=== PATIENT | female | born 1990 ===

== ENCOUNTER 2019-03-14 02:37 | Inpatient (IN) | payer SELFPAY ==
[2019-03-14] MEDS ORDERED: RINGERS SOLUTION,LACTATED 1,000 ML IV PRN (02:39)
[2019-03-14] MEDS ORDERED: CEFAZOLIN 2 GM/D5W RTU 2 GM/50 ML RTUPB IV ONE ×2 (02:39→03:54)
[2019-03-14] MEDS ORDERED: RINGERS SOLUTION,LACTATED 1,000 ML IV ONE (02:39)
[2019-03-14 02:57] LABS: ABSOLUTE EOSINOPHILS # (AUTO) 0.1 10^3/uL (0.0-0.6); ABSOLUTE LYMPHOCYTES (AUTO) 2.9 10^3/uL (0.5-4.7); ABSOLUTE MONOCYTES (AUTO) 0.7 10^3/uL (0.1-1.4); ABSOLUTE NEUT (AUTO) 4.8 10^3/uL (1.7-8.2); BASOPHILS % (AUTO) 0.5 % (0-2); EOSINOPHILS % (AUTO) 0.7 % (0-6); HEMATOCRIT 32.2 % (36.0-47.0); HEMOGLOBIN 10.8 g/dL (12.0-15.5); LYMPHOCYTES % (AUTO) 34.4 % (13-45); MEAN CORPUSCULAR HEMOGLOBIN 30.4 pg (27.0-33.4); MEAN CORPUSCULAR HGB CONC 33.6 g/dL (32.0-36.0); MEAN CORPUSCULAR VOLUME 90 fl (80-97); MONOCYTES % (AUTO) 7.9 % (3-13); PLATELET COUNT 183 10^3/uL (150-450); RED BLOOD COUNT 3.57 10^6/uL (3.72-5.28); SEGMENTED NEUTROPHILS % (AUTO) 56.5 % (42-78); TOTAL CELLS COUNTED % (AUTO) 100 %; WHITE BLOOD COUNT 8.5 10^3/uL (4.0-10.5)
[2019-03-14] MEDS ORDERED: PROPOFOL INJ 200 MG/20 ML VIAL IV ONE (03:02)
[2019-03-14] MEDS ORDERED: MIDAZOLAM 2 MG/2 ML INJ ONE (03:02)
[2019-03-14] MEDS ORDERED: MORPHINE SULFATE 10 MG/ML INJ ONE ×2 (03:03→04:28)
[2019-03-14] MEDS ORDERED: FENTANYL CITRATE INJ/PF 100 MCG/2 ML AMPUL ONE ×2 (03:03→04:06)
[2019-03-14] MEDS ORDERED: OXYTOCIN 10 UNIT/ML VIAL ONE ×2 (03:03→03:21)
[2019-03-14] MEDS ORDERED: METHYLERGONOVINE MALEATE INJ/PF 0.2 MG/1 ML AMPULE ONE (03:06)
[2019-03-14] MEDS ORDERED: CARBOPROST TROMETHAMINE INJ 250 MCG/1 ML AMPULE ONE (03:06)
[2019-03-14] MEDS ORDERED: MISOPROSTOL 0.2 MG TABLET ONE (03:09)
[2019-03-14 03:28] LABS: URINE AMPHETAMINES SCREEN NEGATIVE; URINE BARBITURATES SCREEN NEGATIVE; URINE BENZODIAZEPINES SCREEN NEGATIVE; URINE COCAINE SCREEN NEGATIVE; URINE MARIJUANA (THC) SCREEN NEGATIVE; URINE METHADONE SCREEN NEGATIVE; URINE PHENCYCLIDINE SCREEN NEGATIVE
[2019-03-14] MEDS ORDERED: HYDROMORPHONE HCL INJ/PF 2 MG/ML AMPULE IV PRN (03:50)
[2019-03-14] MEDS ORDERED: PROMETHAZINE HCL INJ 25 MG/1 ML VIAL IV PRN (03:50)
[2019-03-14] MEDS ORDERED: OXYCODONE-ACETAMINOPHEN 5-325 MG TABLET PO PRN (03:50)
[2019-03-14] MEDS ORDERED: OXYTOCIN/NORMAL SALINE 20 UNIT/1,000 ML RTUINJ IV PRN (03:50)
[2019-03-14] MEDS ORDERED: ACETAMINOPHEN 325 MG TABLET PO PRN (03:50)
[2019-03-14] MEDS ORDERED: DIPH/PERTUSS(ACELL)/TETANUS VAC/PF 0.5 ML SYR (>=10YO) IM PRN (03:50)
[2019-03-14] MEDS ORDERED: SIMETHICONE 80 MG TAB.CHEW PO PRN (03:50)
[2019-03-14] MEDS ORDERED: MEASLES,MUMPS&RUBELLA VACC/PF 0.5 ML VIAL SUBCUT PRN (03:50)
[2019-03-14] MEDS ORDERED: ACETAMINOPHEN 1,000 MG/100 ML RTUPB IV PRN (03:50)
[2019-03-14] MEDS ORDERED: OXYTOCIN/NORMAL SALINE 20 UNIT/1,000 ML RTUINJ ONE (03:53)
[2019-03-14] MEDS ORDERED: CITRIC ACID/SODIUM CITRATE ORAL SOLN 15 ML UDCUP ONE (03:54)
[2019-03-14] MEDS ORDERED: MISOPROSTOL 0.2 MG TABLET PR ONE (03:56)
[2019-03-14 03:57] LABS: RUBELLA INTERPRETATION POSITIVE
--- NOTE | 2019-03-14 04:04 | Admission Physical ---
Datetime Report Generated by CPN: 03/14/2019 04:04 CURRENT ADMISSION Chief Complaint: Uterine Contractions; Vaginal Bleeding Chief Complaint Other: posterior placenta previa Indication for Induction: Not Applicable Admit Impression : Term, Intrauterine ; Active Labor; Intact Membranes; Primary Section; Vaginal Bleeding Admit Plan: Admit to Unit; Initiate Section Protocol ALLERGIES Medication Allergies: No Latex: No Latex Allergies PHYSICAL EXAM General: Normal HEENT: Normal Neurologic: Normal Thyroid: Deferred Heart: Normal Lungs: Normal Breast: Deferred Back: Normal Abdomen: Normal Genitourinary Exam: Normal Extremities: Normal DTRs: Normal Pelvic Type: Adequate Vital Signs: Reviewed VAGINAL EXAM Dilatation: 2 FETUS A Monitoring: External US FHR- Baseline: 145 Variability: Moderate 6-25bpm Accelerations: 15X15 Decelerations: None FHR Category: Category I Presentation: Vertex Admit Comment: 29yo (h/o ) with known posterior placenta previa at 37+0ega today by patient report presents via EMS for large amount of vaginal bleeding. SHe reports that she is scheduled for Primary C/S in [place] on sunday and her preop is supposed to be there today. SSE on arrival with large amount of clot in vault and active bright red bleeding with cervix visually 2cm. Total blood vaginally and on patients belongings was approx 300-400ml. Reviewed with patient and that need for Primary section urgently due to actively bleeding. R/B/A reviewed and patient desires to proceed with planned procedure. No records available. Will request. Denies allergies or medical issues. PLANS FOR LABOR AND DELIVERY Labor and Delivery: None Pain Management: None Feeding Preference: Breast Benefit of Breast Feed Discussed: Yes INFORMED CONSENT Informed Consent Obtained: Section Delivery; Risks, Benefits and Alternatives Discussed Signature: with User ID: [email or web address]
--- NOTE | 2019-03-14 04:09 | Brief Operative Note ---
BRIEF OPERATIVE REPORT DATE OF SURGERY: 03/14/19 TIME OF SURGERY: 03:30 PREOPERATIVE DIAGNOSIS: 37+0ega per patient report, , Active Hemorrhage from posterior placenta previa POSTOPERATIVE DIAGNOSIS: DEEDEE- abruption SURGEON: JORGE VASQUES FINDINGS: VMI delivered from cephalic presentation at 0303, Apgars 9/9, weight 2795g (6#3oz). Normal tubes/ovaries. Uterus with infante bruised appearing fundus and posterior lower uterine segment consistent with abruption, bloody amniotic fluid noted upon entry into uterus. IVF 1300ml, UOP 150ml (clear) COMPLICATIONS: Abruption, Placenta previa with hemorrhage ESTIMATED BLOOD LOSS: 460ml (QBL) plus what was lost in room (approx 760-860ml total) TISSUE REMOVED OR ALTERED: placenta and cord sent to pathology TECHNICAL PROCEDURE: Primary section
[2019-03-14] MEDS ORDERED: KETOROLAC TROMETHAMINE INJ/PF 30 MG/1 ML SDV ONE (04:29)
--- NOTE | 2019-03-14 04:29 | Operative Report ---
Operative Report DATE OF SURGERY: 03/14/19 PREOPERATIVE DIAGNOSIS: 37+0ega per patient report, , Active Hemorrhage from posterior placenta previa POSTOPERATIVE DIAGNOSIS: DEEDEE- abruption OPERATION: Primary section SURGEON: JORGE VASQUES ANESTHESIA: GA TISSUE REMOVED OR ALTERED: placenta and cord sent to pathology COMPLICATIONS: Abruption, Posterior placenta previa with hemorrhage ESTIMATED BLOOD LOSS: 460ml (QBL) plus what was lost in room (approx 760-860ml total) INTRAOPERATIVE FINDINGS: VMI delivered from cephalic presentation at 0303, Apgars 9/9, weight 2795g (6#3oz). Normal tubes/ovaries. Uterus with infante bruised appearing fundus and posterior lower uterine segment consistent with abruption, bloody amniotic fluid noted upon entry into uterus. IVF 1300ml, UOP 150ml (clear) PROCEDURE: Anesthesia provider: [Vargas VILLALTA, William Jimenes CRNA] Urine output: [150ml] IV fluids: [1300ml] Indications: [29yo at 37+0ega presents via EMS with active hemorrhage, contractions and known placenta previa. She was scheduled to have Primary C/S at [facility] due to known placenta previa on this coming Sunday. She was actively bleeding on exam (see H&P) and noted to have approximately 300-400ml EBL at that time with continued active bleeding from vagina. On SSE active bleeding from already dilated 2cm cervix noted. She was consented for Primary section and the risks, benefits, alternatives were reviewed and she desires to proceed with planned procedure.] Procedure: The patient was taken to the operating room where spinal anesthesia was unable to be obtained. She was then prepped and draped in the normal sterile fashion and placed in the dorsal supine position with a leftward tilt and then general anesthesia was obtained without difficulty at approximately 0257. A Pfannenstiel skin incision was then made and carried through to the underlying layers of the fascia with the scalpel. The fascia was incised in the midline and the incision extended laterally with the Pickard scissors. The superior aspect of the fascial incision was then grasped with Nii clamps elevated and the underlying rectus muscles dissected off [bluntly]. Attention was then turned to the inferior aspect of the fascial incision which in a similar fashion was grasped, tented up with Nii clamps, and the rectus muscles dissected off [bluntly]. The rectus muscles were then in the midline and the peritoneum at the amount identified and entered [bluntly]. The peritoneal incision was then extended superiorly and inferiorly with good visualization of the bladder. The bladder blade was inserted and the lower uterine segment incised in a transverse fashion with the scalpel. The uterine incision was then extended bluntly. The bladder blade was removed and the 's head was delivered from cephalic presentation atraumatically. The nose and mouth were suctioned and the cord doubly clamped and cut. And the infant was handed off to waiting pediatricians. The placenta was then delivered spontaneously and the uterus exteriorized and cleared of all clots and debris. The uterine incision was then repaired with 1- 0 Vicryl in a running locked fashion. A second layer of the same suture was used to obtain hemostasis via imbrication of the initial layer. The bladder flap was then repaired with 3-0 chromic in a running fashion. The uterus was returned to the patient's abdomen. The gutters were cleared of all clots and debris. All operative sites were noted to be hemostatic and surgicel was placed overlying the rectus muscles to assist with hemostasis. The fascia was reapproximated with 0 Vicryl in a running fashion from each lateral edge to the midline. The skin was closed with 3-0 Monocryl in a running subcuticular fashion with overlying Dermabond for additional dressing as well as wound closure. The patient tolerated the procedure well. Sponge lap needle and instrument counts are correct times 2. 2 g of Ancef were given prior to skin incision. The patient was taken to the recovery area awake and in stable condition.
[2019-03-14] MEDS: KETOROLAC TROMETHAMINE INJ/PF 30 MG/1 ML SDV IV SCH ×3 (05:00→21:38)
--- NOTE | 2019-03-14 07:04 | Delivery Summary ---
Del Sum A-C Datetime Report Generated by CPN: 03/14/2019 07:04 DELIVERY PERSONNEL DELIVERY PERSONNEL: [id number] Delivery Doctor:: Floridalma Sapp MD Anesthesiologist:: Missael Kaye MD UKE OPERATOR:: Cornel Pierre CRNA Labor and Delivery Nurse:: Arsalan Mcclure RN Labor and Delivery Nurse:: Karen Davalos RN Electronic Test Technician:: Arsalan Mcclure RN Neonatal Nurse Practitioner:: JERRY Swain Nursery Nurse:: Camila Elizabeth RN Nursery Nurse:: Radha Abrams RN Volcanologist/COLLECTIONS OFFICER: [facility] Volcanologist/COLLECTIONS OFFICER: [facility] MATERNAL INFORMATION Delivery Anesthesia: General Medications After Delivery: Pitocin Drip 20 Units/1000ml NSS; Cytotec 1000mcg Per Rectum/Vagina Maternal Complications: Placenta Previa; Abruptio Placenta LABOR SUMMARY EDC: 04/04/2019 00:00 No. Babies in Womb: 1 Attempted: No Labor Anesthesia: None LABOR INFORMATION Reason for Induction: Not Applicable Oxytocin: N/A Group B Beta Strep: unknown Antibiotics # of Doses: 0 Antibiotics Time of Last Dose: N/A Name of Antibiotic Given: N/A Steroids Given: None Reason Steroids Not Administered: Not Applicable MEMBRANES Membranes Rupture Method: Artificial Rupture of Membranes: 03/14/2019 03:03 Length of Rupture (hr): 0.00 Amniotic Fluid Color: Bloody Amniotic Fluid Amount: Moderate Amniotic Fluid Odor: Normal STAGES OF LABOR Stage 3 hr: 0 Stage 3 min: 1 VAGINAL DELIVERY Episiotomy: None Laceration #1: None Laceration Extension #1: N/A Laceration Repair: Not Applicable Sponge Count Correct: N/A Sharps Count Correct: N/A CSECTION DELIVERY Primary Indication: Placenta Previa Secondary Indication: Abruptio Placenta CSection Urgency: Emergency CSection Incidence: Primary Labor: No Labor Elective: Nonelective CSection Incision: Lower Uterine Transverse BABY A INFORMATION Infant Delivery Date/Time: 03/14/2019 03:03 Method of Delivery: Born in Route : No : N/A Forceps: N/A Vacuum Extraction: N/A Shoulder Dystocia : No PRESENTATION/POSITION BABY A Presentation: Cephalic Cephalic Presentation: Vertex Breech Presentation: N/A PLACENTA INFORMATION BABY A Placenta Delivery Time : 03/14/2019 03:04 Placenta Method of Delivery: Manual Removal Placenta Status: Delivered SCORES BABY A Heart Rate 1 min: >100 bpm Resp Effort 1 min: Good Cry Reflex Irritability 1 min: Cough or Sneeze or Pulls Away Muscle Tone 1 min: Active Motion Color 1 min: Blue/Pale SCORE 1 MIN: 8 Heart Rate 5 min: >100 bpm Resp Effort 5 min: Good Cry Reflex Irritability 5 min: Cough or Sneeze or Pulls Away Muscle Tone 5 min: Active Motion Color 5 min: Body Basye, Extremities Blue SCORE 5 MIN: 9 INFANT INFORMATION BABY A Gestational Age at Delivery: 37.0 Gestational Status: Early Term- 37- 38.6 Weeks Infant Outcome : Liveborn Condition : Stable Sex: Male IDENTIFICATION BABY A Infant Verification Date/Time: 03/14/2019 03:29 ID Band Number: [id number] Mother's Name Verified: Yes RN Verifying Infant: CGentilin RN, NDoyle RN WEIGHT/LENGTH BABY A Birthweight (gm): 2795 Weight (lb): 6 Infant Weight (oz): 3 Length (in): 18.50 Length (cm): 46.99 CORD INFORMATION BABY A No. Cord Vessels: 3 Nuchal Cord : N/A Cord Blood Taken: Yes-For Eval (Mom's Blood Type - or O+) Infant Suction: Mouth; Nose ASSESSMENT BABY A Infant Complications: None Physical Findings at Delivery: Other Physical Findings- Other: see nursery notes Infant Respirations: Appears Normal Skin to Skin: No Cadastral Engineer/ALS Called : Yes Care By: Camila Elizabeth RN Transferred To: Nursery BABY B INFORMATION : N/A
[2019-03-14] MEDS ORDERED: OXYCODONE-ACETAMINOPHEN 5-325 MG TABLET ONE (08:58)
[2019-03-14] MEDS: OXYCODONE-ACETAMINOPHEN 5-325 MG TABLET PO PRN (09:01)
[2019-03-14] MEDS ORDERED: PRENATAL VITAMIN W DHA CAPSULE PO ONE (09:28)
[2019-03-14] MEDS ORDERED: DOCUSATE SODIUM 100 MG CAPSULE ONE (09:28)
[2019-03-14] MEDS: DOCUSATE SODIUM 100 MG CAPSULE PO SCH ×2 (09:31→17:28)
[2019-03-14] MEDS: PRENATAL VITAMIN W DHA CAPSULE PO SCH (09:31)
[2019-03-14] MEDS ORDERED: PHENYLEPHRINE HCL INJ/PF 10 MG/1 ML SDV ONE (10:00)
[2019-03-14] MEDS ORDERED: DEXAMETHASONE SOD PHOSPHATE INJ 4 MG/1 ML VIAL ONE (10:00)
[2019-03-14] MEDS ORDERED: SUCCINYLCHOLINE CHLORIDE INJ 200 MG/10 ML VIAL ONE (10:00)
[2019-03-14] MEDS ORDERED: ONDANSETRON HCL INJ/PF 4 MG/2 ML SDV ONE (10:00)
[2019-03-15] MEDS ORDERED: IBUPROFEN 800 MG TABLET PO SCH (02:00)
[2019-03-15] MEDS: OXYCODONE-ACETAMINOPHEN 5-325 MG TABLET PO PRN ×2 (02:29→17:22)
[2019-03-15] MEDS: IBUPROFEN 800 MG TABLET PO SCH ×4 (05:50→23:21)
[2019-03-15 07:45] LABS: MEAN CORPUSCULAR HEMOGLOBIN 30.9 pg (27.0-33.4); MEAN CORPUSCULAR HGB CONC 34.3 g/dL (32.0-36.0); MEAN CORPUSCULAR VOLUME 90 fl (80-97); PLATELET COUNT 130 10^3/uL (150-450); RED BLOOD COUNT 2.56 10^6/uL (3.72-5.28); RED CELL DISTRIBUTION WIDTH 12.8 % (11.5-14.0); WHITE BLOOD COUNT 10.8 10^3/uL (4.0-10.5)
[2019-03-15 07:51] LABS: HEMOGLOBIN 7.9 g/dL (12.0-15.5)
[2019-03-15 08:37] LABS: HEPATITIS C VIRUS AB <0.1 s/co ratio (0.0-0.9)
[2019-03-15] MEDS: PRENATAL VITAMIN W DHA CAPSULE PO SCH (10:52)
[2019-03-15] MEDS: DOCUSATE SODIUM 100 MG CAPSULE PO SCH ×2 (10:52→17:21)
--- NOTE | 2019-03-15 13:49 | PDOC PROGRESS REPORT ---
Subjective-OB Progress Note for:: 03/15/19 Subjective: Pt doing well, bonding with baby. She denies heavy bleeding, reports regular diet without flatus at this point. No difficulty voiding. Physical Exam (OB) Vital Signs: Temp Pulse Resp BP Pulse Ox 98.1 F 76 18 112/66 97 03/15/19 11:20 03/15/19 11:20 03/15/19 11:20 03/15/19 11:20 03/15/19 11:20 Intake & Output 03/14/19 03/15/19 03/16/19 06:59 06:59 06:59 Intake Total 1300 480 Output Total 1250 Balance 50 480 Weight 72 kg - PIH/Pre-Eclampsia Clonus: Negative Headache: Absent Epigastric Pain: No Visual Changes: No - Dressing Removed: No Incision: Well Approximated Closure Type: Surgical Glue - Lochia Lochia Amount: Scant < 10 ml Lochia Color: Rubra/Red - Abdomen Description: Tender, Soft Hernia Present: No Fundal Description: Firm, Midline Fundal Height: u/u - u/2 Objective-Diagnostic Laboratory: 03/15/19 07:12 03/15/19 07:12 WBC 10.8 H RBC 2.56 L Hgb 7.9 L D Hct 23.0 L MCV 90 MCH 30.9 MCHC 34.3 RDW 12.8 Plt Count 130 L Assessment and Plan(PN) - Assessment and Plan (1) Incomplete placenta previa with intrapartum hemorrhage Is this a current diagnosis for this admission?: Yes (2) Placenta abruption, delivered, current hospitalization Is this a current diagnosis for this admission?: Yes (3) S/P primary low transverse Is this a current diagnosis for this admission?: Yes - Time Spent with Patient Time with patient: Less than 15 minutes Medications reviewed and adjusted accordingly: Yes - Disposition Anticipated Discharge: Home Within: within 24 hours
[2019-03-15 17:50] LABS: HEPATITS B SURFACE ANTIGEN Negative (Negative)
[2019-03-16] MEDS: IBUPROFEN 800 MG TABLET PO SCH ×2 (05:19→12:51)
[2019-03-16] MEDS: DOCUSATE SODIUM 100 MG CAPSULE PO SCH (10:10)
[2019-03-16] MEDS: PRENATAL VITAMIN W DHA CAPSULE PO SCH (10:10)
[2019-03-16 11:57] VITALS: BP 121/68
--- NOTE | 2019-03-31 08:45 | PDOC DISCHARGE SUMMARY ---
Final Diagnosis Discharge Date: 03/16/19 - Final Diagnosis (1) Incomplete placenta previa with intrapartum hemorrhage Is this a current diagnosis for this admission?: Yes (2) Placenta abruption, delivered, current hospitalization Is this a current diagnosis for this admission?: Yes (3) S/P primary low transverse Is this a current diagnosis for this admission?: Yes Discharge Data - Discharge Medication Home Medications: 95/Iron Fum/Folic/Dha [ + Dha Combo Pack] 1 cap PO DAILY 03/14/19 Reason(s) for Admission: Onset of Labor, Vaginal Bleading, Obstetric Complications Procedures: NST, Management of Obstetric Complications Intrapartum Procedure(s): : Low Cervical, Transverse - Diagnosis Test Laboratory: Temp Pulse Resp BP Pulse Ox 98.1 F 76 18 112/66 97 03/15/19 11:20 03/15/19 11:20 03/15/19 11:20 03/15/19 11:20 03/15/19 11:20 03/14/19 03/14/19 03/15/19 02:44 02:45 07:12 RBC 3.57 L 2.56 L Hgb 10.8 L 7.9 L D Hct 32.2 L 23.0 L Urine Opiates Screen NEGATIVE - Discharge information/Instructions Discharge Activity: Balance Activity w/Rest, No Lifting Over 10 Pounds, No Li fting/Push/Pulling, Pelvic Rest Discharge Diet: Regular Disposition: HOME, SELF-CARE Follow up with: [facility] in: 1, Weeks
== END 2019-03-16 15:19 | disposition home or self-care (01) | DRG 786 ==
LOC: LR 02:37 → 2S 10:38
PROVIDERS: ADMIT Student in an Organized Health Care Education/Training Program; ATTEND Student in an Organized Health Care Education/Training Program
PROC: 10D00Z1 Extraction of Products of Conception, Low, Open Approach (ICD-10-PCS; principal; 2019-03-14)
DX: O45.93 Premature separation of placenta, unspecified, third trimester (principal); O44.33 Partial placenta previa with hemorrhage, third trimester; Z37.0 Single live birth; Z3A.37 37 weeks gestation of pregnancy
CPT/HCPCS: 1961; 36415; 80307; 85025; 85027; 86592; 86701; 86762; 86803; 86804; 86850; 86900; 86901; 86920; 87340; 88307; 94799; J0330; J0690; J1100; J1885; J2210; J2250; J2270; J2370; J2405; J2590; J2704; J3010; J3490; J7120